=== PATIENT | male | born 1970 | race Two or more races ===

== ENCOUNTER 2018-07-20 06:13 | Emergency (ER) | payer OTHER ==
[~2018-07-20] VITALS: Ht 177.8 cm; Wt 95.3 kg
[2018-07-20] MEDS ORDERED: KETO10TA2 PO (08:18)
[2018-07-20] MEDS ORDERED: NORFLEX100MG PO (08:18)
== END 2018-07-20 08:24 | disposition home or self-care (01) ==
LOC: ER 06:13
DX: M62.838 Other muscle spasm (principal)

== ENCOUNTER 2018-08-07 10:52 | Outpatient (CLI) | payer OTHER ==
[~2018-08-07 10:52] MED LIST: KETO10TA2 PO; NORFLEX100MG PO
== END 2018-08-07 14:10 | disposition home or self-care (01) ==
LOC: MRI 10:52
DX: M46.97 Unspecified inflammatory spondylopathy, lumbosacral region (principal)
CPT/HCPCS: 72141; 72148

== ENCOUNTER 2020-09-13 18:43 | Emergency (ER) | payer OTHER ==
[~2020-09-13] VITALS: Ht 177.8 cm; Wt 97.5 kg
== END 2020-09-13 23:13 | disposition home or self-care (01) ==
LOC: ER 18:43 → EDBD 18:56 → ER 18:56
DX: B34.9 Viral infection, unspecified (principal); A90 Dengue fever [classical dengue]; Z11.52 Encounter for screening for COVID-19

== ENCOUNTER 2020-09-15 18:22 | Emergency (ER) | payer OTHER ==
[~2020-09-15] VITALS: Ht 177.8 cm; Wt 97.5 kg
[2020-09-15] MEDS ORDERED: TYLENOL (18:46)
== END 2020-09-15 20:19 | disposition home or self-care (01) ==
LOC: ER 18:22
DX: B34.9 Viral infection, unspecified (principal); R51.9 Headache, unspecified

== ENCOUNTER 2023-06-05 11:36 | Emergency (ER) | payer OTHER ==
[~2023-06-05] VITALS: Ht 177.8 cm; Wt 90.7 kg
[~2023-06-05 11:36] MED LIST changes: +TYLENOL
== END 2023-06-05 14:24 | disposition home or self-care (01) ==
LOC: ER 11:36
DX: H10.32 Unspecified acute conjunctivitis, left eye (principal)

== ENCOUNTER 2023-07-26 08:11 | Emergency (ER) | payer OTHER ==
[~2023-07-26] VITALS: Ht 177.8 cm; Wt 90.7 kg
[2023-07-26] MEDS ORDERED: CEFTRIAXONE SODIUM 1,000 MG VIAL IM STA (08:30)
== END 2023-07-26 08:58 | disposition home or self-care (01) ==
LOC: ER 08:11
DX: H01.006 Unspecified blepharitis left eye, unspecified eyelid (principal)